=== PATIENT | female | born 1955 | race Two or more races ===

== ENCOUNTER 2016-10-30 07:49 | Emergency (ER) | payer MEDICARE, OTHER ==
[~2016-10-30] VITALS: Ht 139.7 cm; Wt 69.1 kg
[~2016-10-30 07:49] MED LIST: ALBU8.5H IH; ATOR10TA84 PO; CAPS1ADH9 TP; CARV6.2534 PO; CLOP75 PO; DULO20CA30 PO; HYDR-3971 PO; METF500T4 PO; MULT-71 PO; OMEP20 PO; PREDAOS OU; VALS320T2 PO
[2016-10-30] MEDS ORDERED: NITR0.4T27 SL (08:07)
[2016-10-30] MEDS ORDERED: ASPI81TA2 PO (08:07)
[2016-10-30] MEDS ORDERED: GABA600T PO (08:07)
[2016-10-30] MEDS ORDERED: LIDOP TD (08:07)
[2016-10-30] MEDS ORDERED: TRAZ-144 PO (08:07)
[2016-10-30] MEDS ORDERED: BUPR1PAT10 TD (08:07)
[2016-10-30] MEDS ORDERED: SODIUM CHLORIDE 0.9% 1,000 ML IV ONE (08:30)
[2016-10-30] MEDS ORDERED: KETOROLAC TROMETHAMINE 30 MG/ML VIAL IVP ONE (08:30)
[2016-10-30 08:39] LABS: BASOPHILS % (AUTO) 0.5 % (0.0-2.0); EOSINOPHILS % (AUTO) 1.4 % (1.0-6.0); HEMOGLOBIN 12.4 g/dL (12.0-16.0); LYMPHOCYTES % (AUTO) 23.4 % (22.0-44.0); MEAN CORPUSCULAR HEMOGLOBIN 26.8 pg (26.0-34.0); MEAN CORPUSCULAR VOLUME 86 fL (80-100); MONOCYTES # (AUTO) 0.7 K/uL (0.1-1.0); MONOCYTES % (AUTO) 5.6 % (2.0-9.0); NEUTROPHILS # (AUTO) 8.9 K/uL (1.8-7.7); NEUTROPHILS % (AUTO) 69.1 % (40.0-70.0); PLATELET COUNT (AUTO) 422 K/uL (150-450); RED BLOOD CELL COUNT(AUTO) 4.62 MIL/uL (4.00-5.20); RED CELL DISTRIBUTION WIDTH 16.6 % (11.5-14.5); WHITE BLOOD COUNT (AUTO) 12.9 K/uL (4.5-11.0)
[2016-10-30 08:52] LABS: ANION GAP 11 mmol/L (8-16); CALCIUM, TOTAL 9.1 mg/dL (8.8-10.5); CARBON DIOXIDE 28 mmol/L (22-29); CHLORIDE 105 mmol/L (98-107); CREATININE 0.86 mg/dL (0.60-1.30); GLOMERULAR FILTR. RATE CALC > 60 mL/min (>60); POTASSIUM 4.2 mmol/L (3.5-5.1); SODIUM SERUM 144 mmol/L (136-145); UREA NITROGEN, BLOOD 10 mg/dL (7-18)
[2016-10-30 08:58] LABS: ALANINE AMINOTRANSFERASE 24 U/L (12-78); ALBUMIN 3.2 g/dL (3.4-5.0); ASPARTATE AMINOTRANSFERASE 16 U/L (15-37); BILIRUBIN,TOTAL 0.5 mg/dL (0.1-1.0); TOTAL PROTEIN, SERUM 7.8 g/dL (6.4-8.2)
[2016-10-30 09:03] LABS: GLUCOSE,POINT OF CARE 123 MG/DL (70-110)
[2016-10-30 09:09] LABS: INFLUENZA TYPE B NEGATIVE FOR TYPE B (NEGATIVE)
[2016-10-30 09:51] VITALS: BP 144/60
== END 2016-10-30 10:36 | disposition home or self-care (01) ==
LOC: EMS 07:52
DX: J40 Bronchitis, not specified as acute or chronic (principal); I25.10 Atherosclerotic heart disease of native coronary artery without angina pectoris; E78.00 Pure hypercholesterolemia, unspecified; I10 Essential (primary) hypertension; E11.9 Type 2 diabetes mellitus without complications; I25.2 Old myocardial infarction; F17.210 Nicotine dependence, cigarettes, uncomplicated; Z86.73 Personal history of transient ischemic attack (TIA), and cerebral infarction without residual deficits; Z88.5 Allergy status to narcotic agent; Z88.2 Allergy status to sulfonamides; Z91.041 Radiographic dye allergy status; Z79.82 Long term (current) use of aspirin
CPT/HCPCS: 36415; 71010; 80053; 82962; 84484; 85025; 87804; 93005; 96361; 96374; 99285; J1885; J7030

== ENCOUNTER 2018-03-29 16:29 | Emergency (ER) | payer MEDICARE, OTHER ==
[~2018-03-29] VITALS: Ht 139.7 cm; Wt 66.8 kg
[~2018-03-29 16:29] MED LIST changes: -ALBU8.5H IH; +ALBU8.5H8 IH; +ASPI81TA39 PO; +BUPR1PAT10 TD; -CAPS1ADH9 TP; -CARV6.2534 PO; +GABA600T PO; +LIDOP TD; +METF-960 PO; -METF500T4 PO; -MULT-71 PO; +MULT1TAB70 PO; +NITR0.4T50 SL; -PREDAOS OU; +TRAZ-184 PO
[2018-03-29] MEDS ORDERED: KETOROLAC TROMETHAMINE 10 MG TABLET PO ONE (18:00)
[2018-03-29] MEDS ORDERED: CYCLOBENZAPRINE HCL 10 MG TABLET PO ONE (18:00)
[2018-03-29] MEDS ORDERED: LOSA100T20 PO (18:16)
[2018-03-29] MEDS ORDERED: AMLO2.5T29 PO (18:16)
[2018-03-29] MEDS ORDERED: CHOL500062 PO (18:16)
[2018-03-29] MEDS ORDERED: RANO10003 PO (18:16)
[2018-03-29] MEDS ORDERED: BUSP7.5T6 PO (18:16)
[2018-03-29] MEDS ORDERED: PANT20TA12 PO (18:16)
[2018-03-29] MEDS ORDERED: METO25TA6 PO (18:16)
[2018-03-29] MEDS ORDERED: ROSU40 PO (18:16)
[2018-03-29] MEDS ORDERED: KETOROLAC TROMETHAMINE 60 MG/2 ML VIAL IM ONE (18:30)
[2018-03-29] MEDS ORDERED: DULO60CA44 PO (18:32)
[2018-03-29] MEDS ORDERED: GABA-533 PO (18:32)
[2018-03-29] MEDS ORDERED: TRAZ150 PO (18:32)
[2018-03-29] MEDS ORDERED: AMLO-511 PO (18:32)
[2018-03-29 19:09] VITALS: BP 140/80
== END 2018-03-29 19:13 | disposition home or self-care (01) ==
LOC: EMS 16:30
DX: S29.012A Strain of muscle and tendon of back wall of thorax, initial encounter (principal); F17.210 Nicotine dependence, cigarettes, uncomplicated; I25.10 Atherosclerotic heart disease of native coronary artery without angina pectoris; E11.9 Type 2 diabetes mellitus without complications; E78.00 Pure hypercholesterolemia, unspecified; I10 Essential (primary) hypertension; I25.2 Old myocardial infarction; Z86.73 Personal history of transient ischemic attack (TIA), and cerebral infarction without residual deficits; Z88.2 Allergy status to sulfonamides; Z88.5 Allergy status to narcotic agent; Z91.041 Radiographic dye allergy status; Z79.01 Long term (current) use of anticoagulants; Z79.82 Long term (current) use of aspirin; Z79.84 Long term (current) use of oral hypoglycemic drugs; Z79.899 Other long term (current) drug therapy; X58.XXXA Exposure to other specified factors, initial encounter; Y93.89 Activity, other specified; Y92.89 Other specified places as the place of occurrence of the external cause; Y99.8 Other external cause status
CPT/HCPCS: 81002; 82962; 93005; 96372; 99283; J1885

== ENCOUNTER 2018-09-10 09:36 | Emergency (ER) | payer MEDICARE, OTHER ==
[~2018-09-10] VITALS: Ht 149.9 cm; Wt 78.0 kg
[~2018-09-10 09:36] MED LIST changes: +AMLO-511 PO; -ATOR10TA84 PO; -BUPR1PAT10 TD; +BUSP7.5T6 PO; +CHOL500062 PO; -CLOP75 PO; +CLOP75TA3 PO; -DULO20CA30 PO; +DULO60CA44 PO; +GABA-533 PO; -GABA600T PO; -HYDR-3971 PO; -LIDOP TD; +LOSA100T58 PO; +METO25TA6 PO; -MULT1TAB70 PO; -OMEP20 PO; +PANT20TA12 PO; +RANO10003 PO; +ROSU40 PO; -TRAZ-184 PO; +TRAZ150 PO; -VALS320T2 PO
[2018-09-10 09:49] LABS: GLUCOSE,POINT OF CARE 199 MG/DL (70-110)
[2018-09-10] MEDS ORDERED: HYDROGEN PEROXIDE 118 ML SOLUTION TP ONE (11:15)
[2018-09-10] MEDS ORDERED: KETOROLAC TROMETHAMINE 10 MG TABLET PO ONE (12:15)
[2018-09-10 13:12] VITALS: BP 156/67
== END 2018-09-10 14:03 | disposition home or self-care (01) ==
LOC: EMS 09:37
DX: M19.011 Primary osteoarthritis, right shoulder (principal); M54.5 Low back pain; I10 Essential (primary) hypertension; I25.2 Old myocardial infarction; E78.00 Pure hypercholesterolemia, unspecified; E11.9 Type 2 diabetes mellitus without complications; Z88.2 Allergy status to sulfonamides; Z88.5 Allergy status to narcotic agent; Z88.8 Allergy status to other drugs, medicaments and biological substances; Z79.82 Long term (current) use of aspirin; Z79.84 Long term (current) use of oral hypoglycemic drugs; Z79.899 Other long term (current) drug therapy; F17.210 Nicotine dependence, cigarettes, uncomplicated
CPT/HCPCS: 72100

== ENCOUNTER → 2019-06-21 | Outpatient (CLI) | payer MEDICARE, MEDICAID ==
[~2019-06-21] MED LIST changes: -AMLO-511 PO; +AMLO5TAB9 PO
[2019-06-21 09:53] LABS: BASOPHILS % (AUTO) 0.6 % (0.0-2.0); EOSINOPHILS % (AUTO) 1.4 % (1.0-6.0); HEMATOCRIT 38.4 % (36-46); HEMOGLOBIN 12.4 g/dL (12.0-16.0); LYMPHOCYTES # (AUTO) 2.4 K/uL (1.0-4.8); LYMPHOCYTES % (AUTO) 19.1 % (22.0-44.0); MEAN CORPUSCULAR HEMOGLOBIN 29.8 pg (26.0-34.0); MEAN CORPUSCULAR HGB CONC 32.3 G/dL (31.0-37.0); MEAN CORPUSCULAR VOLUME 92 fL (80-100); MONOCYTES # (AUTO) 1.1 K/uL (0.1-1.0); NEUTROPHILS # (AUTO) 8.8 K/uL (1.8-7.7); NEUTROPHILS % (AUTO) 69.9 % (40.0-70.0); PLATELET COUNT (AUTO) 350 K/uL (150-450); RED BLOOD CELL COUNT(AUTO) 4.17 MIL/uL (4.00-5.20); RED CELL DISTRIBUTION WIDTH 14.1 % (11.5-14.5)
[2019-06-21 10:00] LABS: HEMOGLOBIN A1C 5.7 % (4.5-6.2)
[2019-06-21 10:14] LABS: ALBUMIN 3.5 g/dL (3.4-5.0); BILIRUBIN,TOTAL 0.2 mg/dL (0.1-1.0); CALCIUM, TOTAL 8.8 mg/dL (8.8-10.5); CREATININE 1.13 mg/dL (0.60-1.30); FREE T4 (FREE THYROXINE) 1.04 ng/dL (0.76-1.46); MAGNESIUM 1.7 mg/dL (1.80-2.40); POTASSIUM 4.5 mmol/L (3.5-5.1); THYROID STIMULATING HORMONE 1.16 uIU/mL (0.36-3.74); TOTAL PROTEIN, SERUM 7.3 g/dL (6.4-8.2)
== END | disposition home or self-care (01) ==
LOC: LABPV 08:44
PROVIDERS: ATTEND Internal Medicine Cardiovascular Disease
DX: I11.0 Hypertensive heart disease with heart failure (principal); I50.9 Heart failure, unspecified; E11.8 Type 2 diabetes mellitus with unspecified complications; E55.9 Vitamin D deficiency, unspecified; D56.5 Hemoglobin E-beta thalassemia; R73.09 Other abnormal glucose
CPT/HCPCS: 82306; 83036; 83735; 84439; 84443